=== PATIENT | male | born 1995 | race Caucasian/White ===

== ENCOUNTER 2016-10-20 10:02 | Inpatient (IN) | payer BC, OTHER ==
[~2016-10-20] VITALS: Ht 172.7 cm; Wt 72.6 kg
--- NOTE | 2016-10-20 23:45 | NUR ---
PRE ASSESSMENT NOTE Pt is a 21 y/o male being admitted for Marijuana and Meth dependence and use. Pt is a/o x 4 with no changes in LOC. No intoxication noted. Pt is calm and cooperative. Pt was informed about smoking passes and Q4H assessments of vital signs. Pt was given an opportunity to ask questions and voice any concerns. Pt's vitals at this time is ; 137/79, HR: 69, O2 Sat: 97 %, T: 98.7, R: 18, Pain: 0/10. Pt was encouraged to notify staff of any changes in condition or of any concerns. Pt verbalized an understanding. Assessment will continue on the 3rd floor.
[2016-10-21 00:34] LABS: *AMPHETAMINE, URINE NEGATIVE (NEGATIVE); *BARBITURATE, URINE NEGATIVE (NEGATIVE); *CANNABINOID, URINE POSITIVE (NEGATIVE); *COCCAINE, URINE NEGATIVE (NEGATIVE); *OPIATE, URINE NEGATIVE (NEGATIVE); *PHENCYCLIDINE SCREEN,URINE NEGATIVE (NEGATIVE)
--- NOTE | 2016-10-21 00:47 | NUR ---
ADMISSION NOTE Pt arrived ambulatory to the [facility] 3rd floor (accompanied by [facility] staff) at approximately 2355. Pt is a 21 y/o male being admitted for Methamphetamine and Marijuana dependence and use. Pt has allergies to Amoxicillin and Codeine and reported a PMH of irregular heart beat. Pt reported that sometimes his heart rate will accelerate out of no where. Pt does not have a primary care physician or a psych doctor at this time. Pt reported his highest level of education being some college and reported being unemployed. Pt is single and has a 5 y/o daughter. Pt stated "I'm in between houses right now. I stay with friends and family, but I would consider myself homeless I guess." Pt was then asked about his substance history including; what substance(s) he uses, how frequently, the route, amount, last date used, and last amount used. Pt stated "I smoke Marijuana every day. It's usually just 1 gram a day. The last time I smoked was the day before yesterday (10/18/16). I had a gram. I started smoking Marijuana when I was 13 y/o (est 8 years). I started smoking meth 4 years ago. I smoke half a gram a day just about. The last time I had Meth was 2 weeks ago, and I had half a gram." Pt was asked about his treatment history. Pt stated "This is my first time in any kind of treatment." Upon assessment pt is a/o x 4 with no changes in LOC. Pt's skin is dry and intact with no rashes, lesions, lacerations noted. Pt has what appears to be a couple of mosquito bites on his abdomen and left leg. Lung auscultations are clear in all lobes and breathing is even an unlabored. Bowel sounds are active in all 4 quadrants. Abdomen is soft and non distended. Skin turgor indicates adequate hydration, PERRLA noted, and Capillary refill is less than 3 seconds. Pt denies any pain/discomfort at this time. Pt was encouraged to notify staff of any changes in condition or of any concerns. Pt verbalized an understanding. All safety measures in place; side rails up x 2, bed locked and in low position, and call light is within reach. Will continue to monitor. Addendum: 10/21/16 at 0509 by DEVEN KIRKLAND LVN Pt didn't arrive with any medications, and denied taking anything at home.
[2016-10-21] MEDS ORDERED: diphenhydrAMINE 50 MG CAPSULE PO PRN (01:15)
[2016-10-21] MEDS ORDERED: MIRALAX 17 GM POWD.PACK PO PRN (01:15)
[2016-10-21] MEDS ORDERED: LOPERAMIDE HCL 2 MG CAPSULE PO PRN ×2 (01:15)
[2016-10-21] MEDS ORDERED: DICYCLOMINE HCL 20 MG TABLET PO PRN (01:15)
[2016-10-21] MEDS ORDERED: MAGNESIUM HYDROXIDE 30 ML LIQUID UDC PO PRN (01:15)
[2016-10-21] MEDS ORDERED: MAG HYDROX/AL HYDROX/SIMETH 30 ML LIQUID UDC PO PRN (01:15)
[2016-10-21] MEDS ORDERED: ACETAMINOPHEN 325 MG TABLET PO PRN (01:15)
[2016-10-21 04:00] VITALS: BP 119/63
--- NOTE | 2016-10-21 06:13 | NUR ---
END OF SHIFT NOTE/HAND OFF NOTE Pt is a 21 y/o male admitted for Marijuana and Meth dependence and use. Pt has allergies to Amoxicillin and Codeine and reported a PMH of depression, anxiety, and irregular heartbeat. Pt reported that sometimes his heart rate will accelerate out of no where. Pt is not on a taper at this time. Pt didn't receive any PRNS while in my care. At this time pt is asleep in bed with no signs of discomfort/distress noted. Breathing is even and unlabored. All safety measures in place. Endorsed to nurse C.F to ensure monitoring is continued.
--- NOTE | 2016-10-21 07:15 | NUR ---
START OF SHIFT NOTE: RECEIVED PT FROM ARCHIVES DIRECTOR NURSE, PT IS IN STABLE CONDITION AT THIS TIME NO S/S OF PAIN OR DISCOMFORT. PT IS ADMITTED TO [facility] FOR METH/MARIJUANA DEPENDENCE/WITHDRAWAL. IT IS AWAKE AND ALERT. PT WILL BE MEDICALLY OBSERVED FOR ANY CHANGES.
[2016-10-21 08:15] LABS: BASOPHILS # (AUTO) 0.1 K/uL (0.0-8.0); BASOPHILS % (AUTO) 0.7 % (0.0-2.0); EOSINOPHILS # (AUTO) 0.2 K/uL (0.0-0.7); EOSINOPHILS % (AUTO) 2.7 % (0.0-7.0); HEMATOCRIT 45.8 % (40-50); HEMOGLOBIN 15.7 G/DL (14.0-18.0); LYMPHOCYTES # (AUTO) 2.8 K/UL (0.8-4.8); LYMPHOCYTES % (AUTO) 32.2 % (20.5-51.5); MEAN CORPUSCULAR HEMOGLOBIN 31.1 UUG (27.0-31.0); MEAN CORPUSCULAR HGB CONC 34 g/dL (32.0-37.0); MEAN CORPUSCULAR VOLUME 90.7 FL (82.0-92.0); MONOCYTES # (AUTO) 0.7 K/UL (0.1-1.30); MONOCYTES % (AUTO) 8.4 % (0.0-11.0); NEUTROPHILS # (AUTO) 4.9 K/UL (1.8-8.9); PLATELET COUNT (AUTO) 293 K/UL (150-450); RED BLOOD CELL COUNT(AUTO) 5.04 MIL/UL (4.7-6.1); WHITE BLOOD COUNT (AUTO) 8.7 K/UL (4.0-11.2)
[2016-10-21 08:32] LABS: ALANINE AMINOTRANSFERASE 29 U/L (16-63); ALKALINE PHOSPHATASE 78 U/L (50-136); AMYLASE 58 U/L (25-115); ASPARTATE AMINOTRANSFERASE 25 U/L (15-37); BILIRUBIN,TOTAL 0.9 mg/dL (0.2-1.0); CARBON DIOXIDE 26 mmol/L (21-32); CHLORIDE 104 mmol/L (98-107); CREATININE 1.1 mg/dL (0.6-1.3); GLUCOSE 96 mg/dL (74-106); LIPASE 120 U/L (73-393); MAGNESIUM 2.1 mg/dL (1.8-2.4); POTASSIUM 3.8 mmol/L (3.5-5.1); TOTAL PROTEIN, SERUM 8.5 g/dL (6.4-8.2); UREA NITROGEN, BLOOD 10 mg/dL (7-18)
[2016-10-21 08:34] LABS: ETHANOL < 3 MG/DL (0-0)
[2016-10-21 09:00] VITALS: BP 122/70
[2016-10-21] MEDS: IBUPROFEN 400 MG TABLET PO PRN ×2 (09:30→17:23)
--- NOTE | 2016-10-21 09:30 | NUR ---
PRN ADMINISTRATION: PT WITH COMPLAINTS OF HEADACHE, PT'S PAIN LEVEL 6/10 PRN MOTRIN 400 MG WAS ADMINISTERED, WILL ASSESS EFFECTIVENESS OF MEDICATIONS
--- NOTE | 2016-10-21 10:00 | NUR ---
PRN RE-ASSESSMENT: PT STATES MOTRIN IS EFFECTIVE PAIN LEVEL 2/10. ENCOURAGE PT TO INCREASE FLUID INTAKE
[2016-10-21] MEDS: HYDROXYZINE PAMOATE 25 MG CAPSULE PO PRN ×2 (10:20→17:23)
--- NOTE | 2016-10-21 10:20 | NUR ---
PRN ADMINISTRATION: PT WAS SEEN AND EXAMINED BY , AND PLACED ORDER FOR VISTARIL, PT VERBALIZED TO MD HE HAS ANXIETY AT THIS TIME.
--- NOTE | 2016-10-21 11:00 | NUR ---
PRN RE-ASSESSMENT: PT VERBALIZED VISTARIL WAS EFFECTIVE, PT'S ANXIETY LEVEL HAS DECREASED AND IMPROVED
--- NOTE | 2016-10-21 12:36 | NUR ---
Client was prompted to attend group by therapist.
[2016-10-21 14:37] VITALS: BP 145/80
--- NOTE | 2016-10-21 15:18 | NUR ---
Therapist prompted client about group times. Client stated he will attend all groups today.
[2016-10-21 16:35] LABS: *AMPHETAMINE, URINE NEGATIVE (NEGATIVE); *BARBITURATE, URINE NEGATIVE (NEGATIVE); *CANNABINOID, URINE POSITIVE (NEGATIVE); *COCCAINE, URINE NEGATIVE (NEGATIVE); *OPIATE, URINE NEGATIVE (NEGATIVE); *PHENCYCLIDINE SCREEN,URINE NEGATIVE (NEGATIVE)
--- NOTE | 2016-10-21 17:23 | NUR ---
PRN ADMINISTRATION: PT WITH COMPLAINTS OF TOOTH ACHE AND ANXIETY, PRN MOTRIN AND VISTARIL , PT'S PAIN LEVEL 6/10 AND B/P NOTED TO BE SLIGHTLY ELEVATED. AT 150/97 WILL RE-ASSESS EFFECTIVENESS OF MEDICATIONS
[2016-10-21 17:59] VITALS: BP 150/97
[2016-10-21] MEDS ORDERED: HYDR-3895 PO (18:22)
[2016-10-21] MEDS ORDERED: IBUP-1953 PO (18:22)
[2016-10-21] MEDS ORDERED: DIPH50CA37 PO (18:22)
--- NOTE | 2016-10-21 18:30 | NUR ---
END OF SHIFT NOTE: PT STATED PRN MEDICATION IS AFFECTIVE , TOOTH PAIN HAS DECREASED, PAIN LEVEL 3/10. PT VERBALIZED ANXIETY HAS DECREASED BUT WILL ALWAYS BE PRESENT. PT IS ADMITTED FOR OBSERVATION. D/T WITHDRAWAL OF MARIJUANA AND METH. PT RECEIVED CHEST X-RAY AND PROVIDED URINE DRUG SCREEN. PT AT THIS TIME IS ALERT AND ORIENTED. PT IS SET TO DISCHARGE TOMORROW. WILL ENDORSE PT TO FIRE PREVENTION SPECIALIST NURSE.
[2016-10-21 20:00] VITALS: BP 143/84
--- NOTE | 2016-10-21 20:15 | NUR ---
START OF SHIFT NOTE Pt is a 21 y/o male admitted for Marijuana and Meth dependence and use. Pt has allergies to Amoxicillin and Codeine and reported a PMH of depression, anxiety, and irregular heartbeat. Pt reported that sometimes his heart rate will accelerate out of no where. Per day shift nurse pt is scheduled for discharge tomorrow. Pt received Vistaril 25 mg PO PRN x 2 and Motrin 400 mg PO PRN x 2 during the day shift. Vital signs have been within normal limits. At this time pt is just returned to his room from a meeting. Pt appears calm and relaxed. No sweating or tremors noted. PERRLA noted. Breathing is even and unlabored. Pt stated " I'm doing alright." Pt denies any pain/discomfort at this time. Pt was encouraged to notify staff of any changes in condition or of any concerns. Pt verbalized an understanding. All safety measures in place. Will continue to monitor.
--- NOTE | 2016-10-22 | NUR ---
VITALS REFUSED Pt refused to have vitals taken at this time. Pt was encouraged x 3 with risks and benefits explained, but the pt still refused. All safety measures in place. Will continue to monitor.
--- NOTE | 2016-10-22 06:48 | NUR ---
END OF SHIFT NOTE Pt is a 21 y/o male admitted for Marijuana and Meth dependence and use. Pt has allergies to Amoxicillin and Codeine and reported a PMH of depression, anxiety, and irregular heartbeat. Pt reported that sometimes his heart rate will accelerate out of no where. Pt is scheduled to discharge today. UA and Chest Xray results are filed appropriately in the pt's chart. Pt didn't receive any PRNS during the shift. Pt slept for a total of 7 hours. All safety measures in place. Will endorse to the oncoming nurse.
--- NOTE | 2016-10-22 07:10 | NUR ---
Start Of Shift Report Received. Pt is a 21 y/o male admitted on 10/19/16 for Marijuana and Meth dependence and use. Pt has allergies to Amoxicillin and Codeine is full code on a regular diet continues fall precautions. PMH of depression, anxiety, and irregular heartbeat. Pt is scheduled for discharge tomorrow. Pt is under observation. Pt did not get any PRN medications during restaurant shift leader. Pt encouraged to drink more fluids to facilitate the detox process, pt verbalized understanding. Pt's respirations are even and unlabored at 17. Pt was encouraged to notify staff of any changes in condition or of any concerns. Pt verbalized an understanding. All safety measures in place. bed locked in lowest position. Will continue to monitor.
[2016-10-22 08:00] VITALS: BP 139/87
[2016-10-22] MEDS ORDERED: TUBERCULIN,PURIF.PROT.DERIV. 5 TU/0.1 ML TEST ID ONE (09:00)
[2016-10-22] MEDS: HYDROXYZINE PAMOATE 25 MG CAPSULE PO PRN (09:03)
[2016-10-22] MEDS: IBUPROFEN 400 MG TABLET PO PRN (09:03)
--- NOTE | 2016-10-22 09:30 | NUR ---
DISCHARGE NOTE Pt is in stable condition. Vitals WNL, Pt alert and oriented x4, skin intact, Pt denies any SI/HI. All discharge paperwork completed dated and signed. Pt educated about discharge instructions, what to do after discharge when to contact MD as well as the s/s reportable to MD, pt verbalized understanding. Pt was provided with all of his discharge paperwork. Pt was discharged from [facility] on 10/22/16 at 0930. Pt left the building with all of his belongings, and prescriptions. MD and psychiatrist have been contacted notified and aware of pt's d/c.
[2016-10-22 17:55] LABS: HEPATITIS B SURFACE AG Negative (Negative)
== END 2016-10-22 09:30 | disposition other institution (70) | DRG 895 ==
LOC: SRC 23:09
PROVIDERS: ADMIT Internal Medicine; ATTEND Internal Medicine
PROC: HZ2ZZZZ Detoxification Services for Substance Abuse Treatment (ICD-10-PCS; principal; 2016-10-20)
PROC: HZ31ZZZ Individual Counseling for Substance Abuse Treatment, Behavioral (ICD-10-PCS; 2016-10-21)
PROC: HZ41ZZZ Group Counseling for Substance Abuse Treatment, Behavioral (ICD-10-PCS; 2016-10-21)
DX: F15.23 Other stimulant dependence with withdrawal (principal); F41.9 Anxiety disorder, unspecified; F12.20 Cannabis dependence, uncomplicated; Z83.3 Family history of diabetes mellitus; Z82.49 Family history of ischemic heart disease and other diseases of the circulatory system; F17.210 Nicotine dependence, cigarettes, uncomplicated; I10 Essential (primary) hypertension; F32.9 Major depressive disorder, single episode, unspecified
CPT/HCPCS: 36415; 70030-TC; 71010; 80307; 80349; 83690; 83735; 84443; 85025; 86592; 86705; 86803; 87340; 87806; G0480